=== PATIENT | female | born 1990 | race Hispanic/Latino ===

== ENCOUNTER 2017-07-10 09:25 | Emergency (ER) | payer SELFPAY | END 2017-07-10 10:09 | disposition home or self-care (01) | LOC: EDH 09:25 | DX: S93.491A Sprain of other ligament of right ankle, initial encounter (principal); Z72.0 Tobacco use; Z91.013 Allergy to seafood; X58.XXXA Exposure to other specified factors, initial encounter; Y93.89 Activity, other specified; Y92.89 Other specified places as the place of occurrence of the external cause; Y99.8 Other external cause status | CPT/HCPCS: 73610 ==